=== PATIENT | male | born 1975 | race Two or more races ===

== ENCOUNTER 2021-08-05 21:44 | Emergency (ER) | payer SELFPAY ==
[~2021-08-05] VITALS: Ht 180.3 cm; Wt 90.7 kg
[2021-08-05 21:45] VITALS: BP 150/85
== END 2021-08-06 01:28 | disposition left against medical advice (07) ==
LOC: EDBD 21:47 → ER 21:47
DX: M79.674 Pain in right toe(s) (principal); Z53.21 Procedure and treatment not carried out due to patient leaving prior to being seen by health care provider
CPT/HCPCS: 73620